=== PATIENT | female | born 1995 | race Caucasian/White ===

== ENCOUNTER 2018-06-03 16:06 | Emergency (ER) | payer BC, SELFPAY ==
[2018-06-03 16:10] VITALS: BP 136/87; PULSE 97; RESP 16; TEMP 36.8; O2SAT 99; BMI 23.7
--- NOTE | 2018-06-03 16:25 | ED.VISSUMM ---
- ER Visit Summary Date of Service: 06/03/18 Chief Complaint: Vaginal swelling History of Present Illness: The patient is a 22 F who presents with swelling of the left side of her vagina for the past week. Patient states she was seen at another facility and had a tampon removed 1 week ago. Patient states the swelling has been getting progressively worse since that time. Patient states it is localized to the left side of her vaginal area. Patient denies any fevers or chills. Patient denies any discharge or drainage. Patient denies any abnormal vaginal bleeding. Patient denies any dysuria or hematuria. Patient denies any other symptoms. Physical Examination: Vital signs are stable. Patient is afebrile. Patient is in no acute distress. Oral mucosa is pink and moist. Neck is supple. Heart was regular rate and rhythm. Lungs are clear and equal bilaterally. Abdomen is soft. Bowel sounds are normal. There is no tenderness noted. Cranial nerves II through XII are intact. There are no focal motor or sensory deficits noted. Pelvic exam was performed. There is some edema of the left labia majora. There is no definite abscess. There is some mild erythema. There is no discharge or drainage from the area. There is no induration. Vaginal mucosa was pink and moist. There is no vaginal abscess noted. There is no discharge or bleeding noted. Emergency Department Course and Treatment: Patient was given a prescription for Keflex. Patient was instructed to use sitz baths and ice packs to help with the pain and swelling. Patient was instructed to follow-up with her primary care physician in 5-7 days. Patient understood and was agreeable with the plan. All questions were answered. Disposition: Discharge home Impression: Labial cellulitis This note was generated with [employer] dictation software. It may contain incorrect words, spelling, and punctuation that were not noted in review of the chart prior to signing ED Disposition - Plan for ED Patient: Disposition: Home or Assisted Living Chief Complaint: Edema Diagnosis: Cellulitis of labia majora Instructions: ED Infec Skin Cellulitis Prescriptions: Cephalexin [Keflex] 500 mg PO Q6 #40 cap Referrals: [facility] Doctor,Out of [NON-STAFF] -
== END 2018-06-03 17:41 | disposition home or self-care (01) ==
PROVIDERS: Emergency Provider Emergency Medicine
DX: N76.2 Acute vulvitis (principal)
CPT/HCPCS: 99282